=== PATIENT | female | born 1945 | race Caucasian/White ===

== ENCOUNTER 2024-07-13 19:00 | Emergency (ER) | payer MEDICARE, OTHER, SELFPAY ==
[2024-07-13 19:03] VITALS: BP 129/62
[2024-07-13 19:11] VITALS: BMI 31.7
[2024-07-13 19:38] LABS: % Basophils 0.3 % (0-2); % Immature Granulocytes 0.3 % (0-0.5); % Lymphocytes 33.9 % (20.5-51.1); % Monocytes 8.8 % (1.7-9.3); % Neutrophils 54.7 % (42.2-75.2); Absolute Eosinophils 0.1 10^3/uL (0-0.7); Absolute Lymphocytes 1.2 10^3/uL (1.2-3.4); Absolute Monocytes 0.3 10^3/uL (0.1-0.6); Absolute Neutrophils 1.9 10^3/uL (1.4-6.5); Hematocrit 32.3 % (37.0-47.0); Hemoglobin 10.7 g/dL (12.0-16.0); Mean Corp Hgb Conc. 33.1 g/dL (33.0-37.0); Mean Corpuscular Hgb 34.7 pg (27.0-31.0); Mean Corpuscular Volume 104.9 fL (81.0-99.0); Mean Platelet Volume 10.2 fL (7.4-10.4); Nucleated Red Blood Cells % 0 %; Platelet Count 161 10^3/uL (130-400); Red Blood Cell Count 3.08 10^6/uL (4.20-5.40); Red Cell Dist. Width 13.2 % (11.5-14.5); White Blood Cell Count 3.5 10^3/uL (4.8-10.8)
[2024-07-13 19:45] LABS: ALT (SGPT) 12 U/L (0-35); AST (SGOT) 17 U/L (14-36); Albumin 3.5 g/dl (3.5-5.0); Alkaline Phosphatase 87 U/L (38-126); Blood Urea Nitrogen 18 mg/dl (7-17); Calcium 8.8 mg/dl (8.4-10.2); Carbon Dioxide 26 mmol/L (22-30); Chloride 101 mmol/L (98-107); Estimated Creatinine Clearance 47 ml/min; Glucose 112 mg/dl (70-99); Potassium 4.1 mmol/L (3.5-5.1); Sodium 131 mmol/L (135-145); Total Bilirubin 0.3 mg/dl (0.2-1.3); Total Protein 6.2 g/dl (6.3-8.2); eGFR 51.43
[2024-07-13 20:00] VITALS: BP 136/60
[2024-07-13 21:00] VITALS: BP 140/69
[2024-07-13 22:00] VITALS: BP 116/58
--- NOTE | 2024-07-13 22:15 | ED.GENMED ---
History of Present Illness
General
Chief Complaint: Fall
Time Seen by Provider: 07/13/24 19:27
History of Present Illness
History of Present Illness:
79-year-old female history of COPD, hypertension, hyperlipidemia presenting status post mechanical fall. Patient states that she stood up to throw something out after eating, came back when she went to go sit down her rollator chair when she missed
it falling backwards. Patient states that she did not think she struck her head but is reporting headache. Patient reports right knee pain. Patient denies neck pain, back pain, or other focal pain. Patient denies any dizziness, chest pain or
shortness of breath.
Past History
Past History
ED Past Medical History: COPD, GERD and HTN
ED Past Surgical History: Appendectomy and Cholecystectomy
Social History
Tobacco: Non-smoker
Alcohol: None
Phy Exam
Physical Exam
Physical Exam:
General: Alert, no acute distress
Head: NCAT
Eyes: clear conjunctiva
Neck: supple
Cardiac: regular rate and rhythm, no murmur
Lungs: clear to auscultation bilaterally. No wheezes, rales, or rhonchi. Speaking full unlabored sentences. No respiratory distress.
Abdomen: soft, nondistended nontender. No rebound or guarding.
MSK: Tenderness palpation to right medial knee with no overlying ecchymosis, erythema, or edema. Full range of motion bilateral knees. 2+ DP pulses bilaterally. No midline cervical/thoracic/lumbar tenderness to palpation.
Skin: warm, dry
Neuro: Alert and oriented x3. no focal deficits
Course
Orders/Labs/Results
Orders:
Orders
07/13/24 19:20
CBC/With Diff [Complete Blood Count/With Diff] Urgent
CMP [Comprehensive Metabolic Panel] Urgent
07/13/24 19:54
CT Cervical Spine W/o Iv Contr Urgent
Comment:
Reason For Exam: fall
CT Head W/o Iv Contrast Urgent
Comment:
Reason For Exam: fall
CR Knee- Right 4 Or More View* Urgent
Comment:
Reason For Exam: medial pain s/p fall
Abnormal Lab Results
07/13/24
19:20
WBC 3.5 L 10^3/uL
(4.8-10.8)
RBC 3.08 L 10^6/uL
(4.20-5.40)
Hgb 10.7 L g/dL
(12.0-16.0)
Hct 32.3 L %
(37.0-47.0)
MCV 104.9 H fL
(81.0-99.0)
MCH 34.7 H pg
(27.0-31.0)
Sodium 131 L mmol/L
(135-145)
BUN 18 H mg/dl
(7-17)
Creatinine 1.1 H mg/dL
(0.6-1.0)
Glucose 112 H mg/dl
(70-99)
Total Protein 6.2 L g/dl
(6.3-8.2)
07/13/24 19:20
07/13/24 19:20
Vital Signs
Initial and Last Documented VS:
Initial Vital Signs
Temp Pulse Resp BP Pulse Ox
97.1 F 66 17 129/62 92
07/13/24 19:03 07/13/24 19:03 07/13/24 19:03 07/13/24 19:03 07/13/24 19:03
Last Documented Vital Signs
Temp Pulse Resp BP Pulse Ox
97.1 F 60 18 116/58 93
07/13/24 19:03 07/13/24 20:00 07/13/24 20:00 07/13/24 22:00 07/13/24 22:01
MDM/Problems Addressed
MDM/Problems Addressed:
79-year-old female presenting status post mechanical fall. Labs reviewed, unremarkable. CT head shows no acute intracranial hemorrhage. CT cervical spine shows no fracture or compression deformity. Degenerative disc disease. X-ray reviewed by
me, no acute fracture or dislocation. Discussed results with pt at bedside. Stable for discharge with PCP follow-up.
*Critical Care Note
Total Time (30-74mins, 75-104mins- exclusive of procedures): Not Applicable
ED Attending Note
-
Portions of this chart may have been created with voice recognition software.� Occasional wrong word or��sound alike� substitutions may have occurred due to the inherent limitations of voice recognition software.
Discharge Plan
Departure
Patient Disposition: Home (Routine Discharge)
Date of Disposition: 07/13/24
Time of Disposition: 22:18
Patient with high blood pressure during this ER visit?: No
Discharge Problem:
Fall, Acute knee pain
Instructions: Preventing falls in adults
Prescriptions:
No Action
clonazepam 1 MG tablet
1 mg PO HS
Neurontin
800 mg PO TID
Prilosec
40 mg PO BID
Risperdal
1 mg PO BID
Zoloft
200 mg PO DAILY
Patient Comments:
takes 2 -100mg tabs
acetaminophen [Tylenol] 325 MG capsule
650 mg PO BID
tramadol 100 MG tablet
100 mg PO Q6H PRN (Reason: pain)
Symbicort 160/4.5 Mcg Inhaler: 1 PUFF Puff
2 puff inhalation BID
melatonin 5 MG tablet
5 mg PO HS
ipratropium-albuterol 3 ML solution for nebulization
3 ml inhalation Q4H PRN (Reason: wheezing)
metoprolol succinate [Toprol XL] 50 MG tablet extended release 24 hr
50 mg PO DAILY
ondansetron HCl 4 MG tablet
4 mg PO Q6H PRN (Reason: nausea)
loperamide [Imodium A-D] 2 MG tablet
2 mg PO Q4H PRN (Reason: diarrhea)
miconazole nitrate [Miconazorb AF] 1 APPLIC powder
1 applic topical BID PRN (Reason: rash breast folds)
bupropion HCl [Wellbutrin SR] 100 MG tablet sustained-release 12 hr
100 mg PO Q12H
gabapentin 800 MG tablet
800 mg PO TID @ 0800,1200,1700
baclofen 10 MG tablet
10 mg PO HS PRN (Reason: back spasms )
amlodipine [Norvasc] 10 MG tablet
10 mg PO DAILY
docusate sodium [Colace] 100 MG capsule
200 mg PO DAILY
albuterol sulfate 18 GM HFA aerosol inhaler
2 inh inhalation Q4H PRN (Reason: sob)
dicyclomine 10 MG capsule
20 mg PO Q6H PRN (Reason: dumping syndrome)
ezetimibe [Zetia] 10 MG tablet
10 mg PO DAILY
acetaminophen [Tylenol] 325 MG capsule
650 mg PO BID PRN (Reason: rib pain )
budesonide-formoterol [Symbicort] 1 PUFF HFA aerosol inhaler
2 puff inhalation R BID
guaifenesin [Mucinex] 600 MG tablet extended release 12hr
600 mg PO BID
irbesartan 300 MG tablet
300 mg PO DAILY Qty: 1 0RF
oxycodone-acetaminophen 5 MG/325 MG tablet
1 tab PO Q6HPRN PRN (Reason: pain) Qty: 14 0RF
Referrals:
Jose G Arzate DO [Family Provider] -
Activity Restrictions/Additional Instructions:
Take Tylenol 975 mg every 6 hours and/or Profen 800 mg every 8 hours with food as needed for pain
Follow-up with primary care doctor in 2 to 3 days.
Return to emergency department for chest pain, shortness of breath or new/worsening symptoms
Interventions
Interventions:
*Risk Screen - Suicide Last Done: 07/13/24 19:14
*General Assessment Last Done: 07/13/24 19:14
*Neglect/Abuse Screening Last Done: 07/13/24 19:14
ED- Fall Risk Assessment Last Done: 07/13/24 19:14
*ED COVID-19 Vaccine History Last Done: 07/13/24 19:14
*Nursing Disposition Last Done: 07/13/24 23:17
ED-Musculoskeletal Assessment Last Done: 07/13/24 19:14
ED- Neurological Assessment Last Done: 07/13/24 19:14
ED-Skin Assessment Last Done: 07/13/24 19:14
Discharge Date and Time
Discharge Date/Time: 07/13/24 23:21
Print Language: SPANISH
== END 2024-07-13 23:21 ==
LOC: EMR 19:00
PROVIDERS: EMERGENCY PHYSICIAN Emergency Medicine; FAMILY PHYSICIAN Internal Medicine
DX: M25.561 Pain in right knee (principal); R51.9 Headache, unspecified; W19.XXXA Unspecified fall, initial encounter; E78.5 Hyperlipidemia, unspecified; I10 Essential (primary) hypertension; J44.9 Chronic obstructive pulmonary disease, unspecified; K21.9 Gastro-esophageal reflux disease without esophagitis; Z90.49 Acquired absence of other specified parts of digestive tract
CPT/HCPCS: 99284; 70450; 72125; 73564; 80053; 85025